=== PATIENT | male | born 1940 | race Caucasian/White ===

== ENCOUNTER 2016-11-10 10:06 | Inpatient (IN) | payer MEDICARE, OTHER ==
[2016-11-10] VITALS (516 sets, daily range): BP systolic 104–138; BP diastolic 54–84; PULSE 75–99; TEMP 98.7–102.8; O2SAT 88–100
[~2016-11-10] VITALS: Ht 170.2 cm; Wt 73.0 kg
[~2016-11-10 10:06] MED LIST: GLUCOPHAGE1000 MG PO; LANTUS100 U/ML SC; LOPRESSOR 550 MG/TAB PO; NORVASC 5MG5 MG/TAB PO; PRINIVIL10 MG PO; ZOCOR 20MG20 MG PO
[2016-11-10 10:51] LABS: MEAN CELL VOLUME 93 fl (80.0-100.0); MEAN CORPUSCULAR HGB CONC 34 g/dl (33.0-37.0); MEAN PLATELET VOLUME 8.8 fl (7.4-10.4); PLATELET COUNT 182 K/mm3 (130-400); RED BLOOD COUNT 2.87 M/mm3 (4.20-5.60); REDCELL DISTRIBUTION WIDTH-CV 14.2 % (11.5-14.5)
[2016-11-10 10:54] LABS: HEMATOCRIT 26.8 % (42.0-52.0); HEMOGLOBIN 9.1 g/dl (13.5-18.0); MEAN CORPUSCULAR HEMOGLOBIN 32 pg (27.0-31.0)
[2016-11-10 11:02] LABS: ADJUSTED CALCIUM 8.9 mg/dL (8.4-10.2); ALANINE AMINOTRANSFERASE 26 U/L (21-72); ALBUMIN 3.5 gm/dL (3.5-5.0); ALKALINE PHOSPHATASE 107 U/L (50-136); ANION GAP 12 mmol/L (7-16); BILIRUBIN,TOTAL 0.7 mg/dL (0.0-1.0); BLOOD UREA NITROGEN 47 mg/dL (9-20); CALCIUM 8.5 mg/dL (8.4-10.2); CHLORIDE 106 mmol/L (98-107); CREATININE, serum 2.25 mg/dL (0.66-1.25); GLUCOSE 256 mg/dL (74-106); LIPASE 19 U/L (23-300); MAGNESIUM 1.5 mg/dL (1.6-2.3); PHOSPHOROUS 2.5 mg/dL (2.5-4.5); POTASSIUM 4.6 mmol/L (3.4-5.0); SODIUM 132 mmol/L (137-145); TOTAL PROTEIN 6.7 gm/dL (6.4-8.2)
[2016-11-10 11:15] LABS: CARBON DIOXIDE 13 mmol/L (22-30)
[2016-11-10 11:42] LABS: ARTERIAL BLD GAS O2 SATURATION 95.1 % (92-100); ARTERIAL BLD GAS TCO2 CT 14.9; ARTERIAL BLOOD GAS BASE EXCESS -10.1 (-2-2); ARTERIAL BLOOD GAS HCO3 14.1 meq/L (22-26); ARTERIAL BLOOD GAS PHT 7.37 C (7.35-7.45); ARTERIAL BLOOD GAS PO2 82.5 mmHg (80-100); ARTERIAL BLOOD GAS PO2T 82.5 (80-100); ARTERIAL BLOOD GAS pH 7.37 (7.35-7.45); OXYHEMOGLOBIN 94.3 %
[2016-11-10 11:43] LABS: ATS? YES
[2016-11-10 11:52] LABS: BAND 21 % (0-10); BASOPHIL 2 % (0-2); DOHLE BODIES PRESENT; NEUTROPHILS 64 % (42.0-75.2); PLATELET ESTIMATE NORMAL (NORMAL); TOTAL CELLS COUNTED 100; TOXIC GRANULATION PRESENT
[2016-11-10 11:56] LABS: ADD PATHOLOGY DIFF REVIEW YES; ANISOCYTOSIS 1+; OVALOCYTES 1+; TEAR DROP CELLS 1+
[2016-11-10 12:22] LABS: C-REACTIVE PROTEIN 32.7 mg/dL (0.0-0.9)
[2016-11-10] MEDS ORDERED: CALCIUM CITRATE1 TA1 PO (13:07)
[2016-11-10] MEDS ORDERED: NOVOLOG FLEX100 U/ML SQ (13:08)
[2016-11-10] MEDS ORDERED: LASIX 20MG TABL20 MG PO (13:34)
[2016-11-10] MEDS ORDERED: NORCO 325 MG-51 TAB PO (13:35)
[2016-11-10] MEDS ORDERED: ZOFRAN ODT8 MG PO (13:36)
[2016-11-10] MEDS ORDERED: PAXIL 10MG10 MG PO (13:36)
[2016-11-10] MEDS ORDERED: MIRALAX PA17 GM/Dose PO (13:37)
[2016-11-10 14:08] LABS: PH 5 (5-8); SQUAMOUS EPITHELIAL None Seen /hpf; URINE APPEARANCE Clear; URINE BACTERIA None Seen /hpf; URINE BILIRUBIN Negative (NEGATIVE); URINE BLOOD 2+ (NEGATIVE); URINE COLOR Yellow; URINE GLUCOSE Negative (NEGATIVE); URINE KETONE Negative (NEGATIVE); URINE RBC 0-2 /hpf; URINE UROBILINOGEN Negative (NEGATIVE); URINE WBC 0-2 /hpf
[2016-11-10 18:34] LABS: VENOUS BLOOD GAS BE -9.9 (-4-4); VENOUS BLOOD GAS SAO2 67.2 % (60-80)
[2016-11-10 18:35] LABS: VENOUS BLOOD GAS SITE CENTRAL LINE
[2016-11-10 21:38] LABS: INR 1.3 (0.8-3.0)
[2016-11-11] VITALS (1247 sets, daily range): BP systolic 96–135; BP diastolic 49–68; PULSE 72–106; TEMP 98.3–103.1; O2SAT 85–100
[2016-11-11 05:06] LABS: BASO % 0.2 % (0.0-2.0); GRAN # 7.4 (1.4-6.5); GRAN % 80.2 % (42.2-75.2); HEMATOCRIT 24.2 % (42.0-52.0); HEMOGLOBIN 7.9 g/dl (13.5-18.0); LYMPH # 1.3 (1.2-3.4); LYMPH % 14.1 % (20.0-51.0); MEAN CELL VOLUME 96 fl (80.0-100.0); MEAN CORPUSCULAR HEMOGLOBIN 31 pg (27.0-31.0); MEAN CORPUSCULAR HGB CONC 33 g/dl (33.0-37.0); MEAN PLATELET VOLUME 8.9 fl (7.4-10.4); MONO # 0.5 (0.1-0.6); PLATELET COUNT 147 K/mm3 (130-400); RED BLOOD COUNT 2.51 M/mm3 (4.20-5.60); REDCELL DISTRIBUTION WIDTH-CV 14.5 % (11.5-14.5); WHITE BLOOD COUNT 9.2 K/mm3 (4.8-10.8)
[2016-11-11 05:09] LABS: VENOUS BLOOD GAS BE -8.9 (-4-4); VENOUS BLOOD GAS SAO2 70.8 % (60-80)
[2016-11-11 05:10] LABS: ARTERIAL BLD GAS O2 SATURATION 95.3 % (92-100); ARTERIAL BLD GAS TCO2 CT 14.4; ARTERIAL BLOOD GAS BASE EXCESS -10.2 (-2-2); ARTERIAL BLOOD GAS HCO3 13.7 meq/L (22-26); ARTERIAL BLOOD GAS PO2 80.2 mmHg (80-100); ARTERIAL BLOOD GAS PO2T 80.2 (80-100); OXYHEMOGLOBIN 93.6 %
[2016-11-11 05:12] LABS: INR 1.2 (0.8-3.0); PROTHROMBIN TIME 13.7 SECONDS (9.7-12.8)
[2016-11-11 05:20] LABS: ADJUSTED CALCIUM 8.4 mg/dL (8.4-10.2); ALBUMIN 2.5 gm/dL (3.5-5.0); BILIRUBIN,TOTAL 0.4 mg/dL (0.0-1.0); CALCIUM 7.2 mg/dL (8.4-10.2); CREATININE, serum 1.56 mg/dL (0.66-1.25); MAGNESIUM 2.4 mg/dL (1.6-2.3); POTASSIUM 4.2 mmol/L (3.4-5.0); TOTAL PROTEIN 5.3 gm/dL (6.4-8.2)
[2016-11-11 05:31] LABS: TROPONIN-I 0.139 ng/mL (0.000-0.034)
[2016-11-11 09:28] LABS: VENOUS BLOOD GAS BE -12.6 (-4-4); VENOUS BLOOD GAS SAO2 67.7 % (60-80)
[2016-11-11 09:29] LABS: VENOUS BLOOD GAS SITE CENTRAL LINE
[2016-11-11 11:09] LABS: HEMATOCRIT 23.5 % (42.0-52.0); HEMOGLOBIN 7.7 g/dl (13.5-18.0)
[2016-11-11 11:37] LABS: CALCIUM 7.1 mg/dL (8.4-10.2); CREATININE, serum 1.57 mg/dL (0.66-1.25)
[2016-11-11 13:15] LABS: VENOUS BLOOD GAS BE -9.9 (-4-4)
[2016-11-11 13:16] LABS: VENOUS BLOOD GAS SITE CENTRAL LINE
[2016-11-11 17:35] LABS: VENOUS BLOOD GAS BE -12.9 (-4-4); VENOUS BLOOD GAS SAO2 61.9 % (60-80)
[2016-11-11 17:36] LABS: VENOUS BLOOD GAS SITE CENTRAL LINE
[2016-11-12] VITALS (673 sets, daily range): BP systolic 110–162; BP diastolic 60–92; PULSE 74–97; TEMP 99.9–102; O2SAT 73–100
[2016-11-12 05:47] LABS: VENOUS BLOOD GAS SAO2 70.2 % (60-80)
[2016-11-12 05:47] LABS: ARTERIAL BLD GAS O2 SATURATION 97.1 % (92-100); ARTERIAL BLD GAS TCO2 CT 14.3; ARTERIAL BLOOD GAS BASE EXCESS -9.3 (-2-2); ARTERIAL BLOOD GAS HCO3 13.6 meq/L (22-26); ARTERIAL BLOOD GAS PHT 7.42 C (7.35-7.45); ARTERIAL BLOOD GAS PO2 99.9 mmHg (80-100); ARTERIAL BLOOD GAS PO2T 99.9 (80-100); ARTERIAL BLOOD GAS pH 7.42 (7.35-7.45); OXYHEMOGLOBIN 96.2 %
[2016-11-12 05:55] LABS: VENOUS BLOOD GAS SITE CENTRAL LINE
[2016-11-12 05:55] LABS: ALLEN TEST YES; ALLENS TEST RESULT PASS; ATS? YES
[2016-11-12 06:17] LABS: INR 1.2 (0.8-3.0); PROTHROMBIN TIME 13.6 SECONDS (9.7-12.8)
[2016-11-12 06:22] LABS: CALCIUM 7.2 mg/dL (8.4-10.2); CREATININE, serum 1.28 mg/dL (0.66-1.25)
[2016-11-12 07:38] LABS: ADD PATHOLOGY DIFF REVIEW NO; HEMATOCRIT 25.6 % (42.0-52.0); HEMOGLOBIN 8.4 g/dl (13.5-18.0); MEAN CELL VOLUME 94 fl (80.0-100.0); MEAN CORPUSCULAR HEMOGLOBIN 31 pg (27.0-31.0); MEAN CORPUSCULAR HGB CONC 33 g/dl (33.0-37.0); MEAN PLATELET VOLUME 9.7 fl (7.4-10.4); PLATELET COUNT 143 K/mm3 (130-400); RED BLOOD COUNT 2.72 M/mm3 (4.20-5.60); REDCELL DISTRIBUTION WIDTH-CV 16.7 % (11.5-14.5); WHITE BLOOD COUNT 7.9 K/mm3 (4.8-10.8)
[2016-11-12 07:58] LABS: BAND 50 % (0-10); NEUTROPHILS 38 % (42.0-75.2); TOTAL CELLS COUNTED 100
[2016-11-12 08:00] LABS: BURR CELLS 2+; PLATELET ESTIMATE DECREASED (NORMAL); TARGET CELLS 1+
[2016-11-12 08:01] LABS: ANISOCYTOSIS 1+
[2016-11-12 09:45] LABS: VENOUS BLOOD GAS BE -9.8 (-4-4)
[2016-11-12 09:46] LABS: VENOUS BLOOD GAS SITE CENTRAL LINE
[2016-11-12 13:20] LABS: VENOUS BLOOD GAS BE -9.5 (-4-4); VENOUS BLOOD GAS SAO2 64.9 % (60-80)
[2016-11-12 13:21] LABS: VENOUS BLOOD GAS SITE CENTRAL LINE
[2016-11-13] VITALS (740 sets, daily range): BP systolic 108–128; BP diastolic 58–99; PULSE 64–89; TEMP 97–101.6; O2SAT 84–100
[2016-11-13 06:13] LABS: INR 1.2 (0.8-3.0); PROTHROMBIN TIME 13.6 SECONDS (9.7-12.8)
[2016-11-13 06:20] LABS: CALCIUM 7.5 mg/dL (8.4-10.2); CREATININE, serum 1.3 mg/dL (0.66-1.25); POTASSIUM 3.9 mmol/L (3.4-5.0)
[2016-11-13 10:03] LABS: MEAN CELL VOLUME 94 fl (80.0-100.0); MEAN CORPUSCULAR HGB CONC 33 g/dl (33.0-37.0); MEAN PLATELET VOLUME 10.8 fl (7.4-10.4); PLATELET COUNT 137 K/mm3 (130-400); RED BLOOD COUNT 2.77 M/mm3 (4.20-5.60); REDCELL DISTRIBUTION WIDTH-CV 17.3 % (11.5-14.5); WHITE BLOOD COUNT 5.5 K/mm3 (4.8-10.8)
[2016-11-13 10:06] LABS: HEMATOCRIT 25.9 % (42.0-52.0); HEMOGLOBIN 8.6 g/dl (13.5-18.0); MEAN CORPUSCULAR HEMOGLOBIN 31 pg (27.0-31.0)
[2016-11-14] VITALS (498 sets, daily range): BP systolic 117–140; BP diastolic 57–84; PULSE 64–84; TEMP 36–37.7; O2SAT 87–100
[2016-11-14 05:33] LABS: MEAN CELL VOLUME 92 fl (80.0-100.0); MEAN CORPUSCULAR HGB CONC 33 g/dl (33.0-37.0); MEAN PLATELET VOLUME 9.2 fl (7.4-10.4); PLATELET COUNT 150 K/mm3 (130-400); RED BLOOD COUNT 2.95 M/mm3 (4.20-5.60); WHITE BLOOD COUNT 7.6 K/mm3 (4.8-10.8)
[2016-11-14 05:35] LABS: MEAN CORPUSCULAR HEMOGLOBIN 31 pg (27.0-31.0)
[2016-11-14 06:24] LABS: ADJUSTED CALCIUM 9.1 mg/dL (8.4-10.2); ALBUMIN 2.4 gm/dL (3.5-5.0); BILIRUBIN,TOTAL 0.4 mg/dL (0.0-1.0); CALCIUM 7.8 mg/dL (8.4-10.2); CREATININE, serum 1.19 mg/dL (0.66-1.25); POTASSIUM 3.9 mmol/L (3.4-5.0); TOTAL PROTEIN 5.3 gm/dL (6.4-8.2)
[2016-11-15] VITALS (561 sets, daily range): BP systolic 132–140; BP diastolic 64–80; PULSE 55–71; TEMP 97–98.3; O2SAT 92–100
[2016-11-16 03:22] VITALS: BP 136/67; PULSE 67; TEMP 100.6
[2016-11-16 07:31] VITALS: BP 141/57; PULSE 62; TEMP 98.8
[2016-11-16 09:00] LABS: MEAN CELL VOLUME 93 fl (80.0-100.0); MEAN CORPUSCULAR HGB CONC 33 g/dl (33.0-37.0); MEAN PLATELET VOLUME 9.3 fl (7.4-10.4); PLATELET COUNT 232 K/mm3 (130-400); RED BLOOD COUNT 2.91 M/mm3 (4.20-5.60); REDCELL DISTRIBUTION WIDTH-CV 16.7 % (11.5-14.5); WHITE BLOOD COUNT 7.1 K/mm3 (4.8-10.8)
[2016-11-16 09:08] LABS: HEMOGLOBIN 8.8 g/dl (13.5-18.0); MEAN CORPUSCULAR HEMOGLOBIN 30 pg (27.0-31.0)
[2016-11-16 09:09] LABS: ADD PATHOLOGY DIFF REVIEW NO
[2016-11-16 09:22] LABS: CALCIUM 7.8 mg/dL (8.4-10.2); CREATININE, serum 1.07 mg/dL (0.66-1.25); POTASSIUM 3.5 mmol/L (3.4-5.0)
[2016-11-16 09:35] LABS: BAND 11 % (0-10); EOSINOPHIL 3 % (0-4); HYPOCHROMIA 2+; TARGET CELLS 1+; TOTAL CELLS COUNTED 100
[2016-11-16 09:36] LABS: NEUTROPHILS 57 % (42.0-75.2); PLATELET ESTIMATE NORMAL (NORMAL)
[2016-11-16 11:23] VITALS: BP 127/57; PULSE 60; TEMP 97.8
[2016-11-16 18:21] VITALS: BP 119/55; PULSE 59; TEMP 98.7
[2016-11-17 05:00] VITALS: BP 142/66; PULSE 55; TEMP 98
[2016-11-17 07:37] VITALS: BP 131/74; PULSE 76; TEMP 98.1
[2016-11-17 07:48] VITALS: BP 133/64; PULSE 65; TEMP 98.3
[2016-11-17 09:14] LABS: MEAN CELL VOLUME 92 fl (80.0-100.0); MEAN CORPUSCULAR HGB CONC 33 g/dl (33.0-37.0); MEAN PLATELET VOLUME 9.5 fl (7.4-10.4); PLATELET COUNT 252 K/mm3 (130-400); RED BLOOD COUNT 2.82 M/mm3 (4.20-5.60); REDCELL DISTRIBUTION WIDTH-CV 16.9 % (11.5-14.5); WHITE BLOOD COUNT 6.6 K/mm3 (4.8-10.8)
[2016-11-17 09:15] LABS: HEMATOCRIT 25.9 % (42.0-52.0); HEMOGLOBIN 8.5 g/dl (13.5-18.0); MEAN CORPUSCULAR HEMOGLOBIN 30 pg (27.0-31.0)
[2016-11-17 09:16] LABS: ADD PATHOLOGY DIFF REVIEW NO
[2016-11-17 10:13] LABS: BAND 7 % (0-10); BASOPHIL 1 % (0-2); HYPOCHROMIA 1+; NEUTROPHILS 73 % (42.0-75.2); TOTAL CELLS COUNTED 100
[2016-11-17 10:14] LABS: ANISOCYTOSIS 1+; PLATELET ESTIMATE NORMAL (NORMAL)
[2016-11-17 11:23] LABS: ADJUSTED CALCIUM 9.2 mg/dL (8.4-10.2); ALBUMIN 2.1 gm/dL (3.5-5.0); BILIRUBIN,TOTAL 0.3 mg/dL (0.0-1.0); CALCIUM 7.7 mg/dL (8.4-10.2); CREATININE, serum 1.07 mg/dL (0.66-1.25); POTASSIUM 3.3 mmol/L (3.4-5.0); TOTAL PROTEIN 4.9 gm/dL (6.4-8.2)
[2016-11-17 13:39] VITALS: BP 137/59; PULSE 65; TEMP 98.3
[2016-11-17 15:52] VITALS: BP 114/58; PULSE 61; TEMP 97.8
[2016-11-17 19:35] VITALS: BP 140/55; PULSE 64; TEMP 98.4
[2016-11-18 00:19] VITALS: BP 122/52; PULSE 60; TEMP 97.9
[2016-11-18 04:14] VITALS: BP 137/64; PULSE 61; TEMP 99
[2016-11-18 07:34] LABS: ADJUSTED CALCIUM 9.3 mg/dL (8.4-10.2); ALBUMIN 2.3 gm/dL (3.5-5.0); BILIRUBIN,TOTAL 0.3 mg/dL (0.0-1.0); CALCIUM 7.9 mg/dL (8.4-10.2); CREATININE, serum 1.06 mg/dL (0.66-1.25); MAGNESIUM 1.6 mg/dL (1.6-2.3); POTASSIUM 3.4 mmol/L (3.4-5.0); TOTAL PROTEIN 5.2 gm/dL (6.4-8.2)
[2016-11-18 08:11] VITALS: BP 138/57; PULSE 66; TEMP 98.1
[2016-11-18 11:55] VITALS: BP 125/62; PULSE 57; TEMP 98.9
[2016-11-18] MEDS ORDERED: FLAGYL500 MG PO (12:02)
[2016-11-18] MEDS ORDERED: IPRATROPIUM BROM3 M1 IH (12:03)
[2016-11-18] MEDS ORDERED: XARELTO15 MG PO (12:04)
[2016-11-18] MEDS ORDERED: TOPROL XL100 MG PO (12:07)
[2016-11-18] MEDS ORDERED: ASPIRIN E.C. 8181 MG PO (12:19)
[2016-11-18] MEDS ORDERED: PROTONIX 40MG T40 MG PO (12:20)
[2016-11-18] MEDS ORDERED: MAG-OX 400400 MG/TAB PO (12:20)
[2016-11-18] MEDS ORDERED: LANTUS100 U/ML SC (12:23)
[2016-11-18] MEDS ORDERED: PRINIVIL10 MG PO (12:26)
== END 2016-11-18 15:16 | DRG 871 ==
LOC: COL.ER 10:06 → ICU 12:33 → MEDICAL 11-15 14:05
PROVIDERS: Emergency Medicine; Family Medicine; Internal Medicine; Internal Medicine Interventional Cardiology; Nurse Practitioner; Nurse Practitioner Family
PROC: 02H633Z Insertion of Infusion Device into Right Atrium, Percutaneous Approach (ICD-10-PCS; principal; 2016-11-10)
DX: A02.1 Salmonella sepsis (principal); J18.9 Pneumonia, unspecified organism; I21.4 Non-ST elevation (NSTEMI) myocardial infarction; I26.99 Other pulmonary embolism without acute cor pulmonale; E87.2 Acidosis; C18.2 Malignant neoplasm of ascending colon; N17.9 Acute kidney failure, unspecified; E87.3 Alkalosis; I12.9 Hypertensive chronic kidney disease with stage 1 through stage 4 chronic kidney disease, or unspecified chronic kidney disease; E11.22 Type 2 diabetes mellitus with diabetic chronic kidney disease; N18.3 Chronic kidney disease, stage 3 (moderate); Z79.4 Long term (current) use of insulin; R65.20 Severe sepsis without septic shock; I25.10 Atherosclerotic heart disease of native coronary artery without angina pectoris; E83.42 Hypomagnesemia; D64.9 Anemia, unspecified
CPT/HCPCS: 99223-AI; 99233-AI; 99239; A4315; A9502; C1751; C9113; J0696; J1450; J1644; J1650; J1815; J1956; J2185; J2785; J3370; J3475; J7030; J7040; J7050; P9016; Q9967

== ENCOUNTER → 2016-12-11 | Outpatient (REF) ==
[~2016-12-11] MED LIST changes: +ASPIRIN E.C. 8181 MG PO; +CALCIUM CITRATE1 TA1 PO; +FLAGYL500 MG PO; +IPRATROPIUM BROM3 M1 IH; +LASIX 20MG TABL20 MG PO; +MAG-OX 400400 MG/TAB PO; +MIRALAX PA17 GM/Dose PO; +NORCO 325 MG-51 TAB PO; +NOVOLOG FLEX100 U/ML SQ; +PAXIL 10MG10 MG PO; +PROTONIX 40MG T40 MG PO; +TOPROL XL100 MG PO; +XARELTO15 MG PO; +ZOFRAN ODT8 MG PO
== END ==
LOC: ZAIV 12-07 06:00
DX: Z02.89 Encounter for other administrative examinations (principal)

== ENCOUNTER 2017-05-01 08:52 | Day surgery (SDC) | payer MEDICARE, OTHER ==
[2017-05-01] VITALS (9 sets, daily range): BP systolic 114–179; BP diastolic 61–84; PULSE 45–56; TEMP 97.8–98.2
[~2017-05-01] VITALS: Ht 170.2 cm; Wt 77.6 kg
[2017-05-01 09:52] LABS: MEAN CELL VOLUME 96 fl (80.0-100.0); MEAN CORPUSCULAR HGB CONC 33 g/dl (33.0-37.0); MEAN PLATELET VOLUME 8.3 fl (7.4-10.4); PLATELET COUNT 201 K/mm3 (130-400); RED BLOOD COUNT 3.59 M/mm3 (4.20-5.60); REDCELL DISTRIBUTION WIDTH-CV 13.6 % (11.5-14.5)
[2017-05-01 09:53] LABS: HEMATOCRIT 34.6 % (42.0-52.0); HEMOGLOBIN 11.4 g/dl (13.5-18.0); MEAN CORPUSCULAR HEMOGLOBIN 32 pg (27.0-31.0)
[2017-05-01 09:56] LABS: PROTHROMBIN TIME 11.7 SECONDS (9.7-12.8)
[2017-05-01 10:01] LABS: CALCIUM 9.2 mg/dL (8.4-10.2); CREATININE, serum 1.65 mg/dL (0.66-1.25); POTASSIUM 5.4 mmol/L (3.4-5.0)
[2017-05-01] MEDS ORDERED: ZEBETA10 MG PO (11:27)
== END 2017-05-01 14:02 | disposition home or self-care (01) ==
LOC: COL.CAR 08:52
PROVIDERS: Internal Medicine Cardiovascular Disease
DX: R94.39 Abnormal result of other cardiovascular function study (principal); I25.2 Old myocardial infarction; E11.22 Type 2 diabetes mellitus with diabetic chronic kidney disease; I12.9 Hypertensive chronic kidney disease with stage 1 through stage 4 chronic kidney disease, or unspecified chronic kidney disease; N18.9 Chronic kidney disease, unspecified; Z86.711 Personal history of pulmonary embolism; Z85.038 Personal history of other malignant neoplasm of large intestine; Z90.49 Acquired absence of other specified parts of digestive tract; Z79.82 Long term (current) use of aspirin; Z79.4 Long term (current) use of insulin; Z80.9 Family history of malignant neoplasm, unspecified; E78.5 Hyperlipidemia, unspecified
CPT/HCPCS: C1769; C1894; J1644; J2250; J3010; Q9967

== ENCOUNTER → 2017-09-07 | Outpatient (CLI) | payer MEDICARE, OTHER ==
[~2017-09-07] MED LIST changes: +ZEBETA10 MG PO
== END ==
LOC: COL.RAD 11:25
DX: J84.10 Pulmonary fibrosis, unspecified (principal); M46.84 Other specified inflammatory spondylopathies, thoracic region; M43.8X4 Other specified deforming dorsopathies, thoracic region; Z90.49 Acquired absence of other specified parts of digestive tract; Z86.711 Personal history of pulmonary embolism

== ENCOUNTER 2018-10-28 07:23 | Emergency (ER) | payer MEDICARE, OTHER ==
[~2018-10-28] VITALS: Ht 170.2 cm; Wt 81.8 kg
[2018-10-28 07:33] VITALS: TEMP 97.9
[2018-10-28] MEDS ORDERED: CLARITIN 1010 MG/TAB PO (08:17)
[2018-10-28] MEDS ORDERED: HUMALOG PEN100 U/ML SQ (08:18)
[2018-10-28] MEDS ORDERED: LANTUS SOLOS100 U/ML SQ (08:20)
[2018-10-28] MEDS ORDERED: PRINIVIL20 MG PO (08:22)
[2018-10-28 09:22] LABS: BASO % 0.3 % (0.0-2.0); EOS # 0.1 (0.0-0.7); EOS % 0.6 % (0-4.0); GRAN # 6.9 (1.4-6.5); GRAN % 73.6 % (42.2-75.2); HEMATOCRIT 36.6 % (42.0-52.0); HEMOGLOBIN 12.2 g/dl (13.5-18.0); LYMPH # 1.7 (1.2-3.4); LYMPH % 18.4 % (20.0-51.0); MEAN CELL VOLUME 95 fl (80.0-100.0); MEAN CORPUSCULAR HEMOGLOBIN 32 pg (27.0-31.0); MEAN CORPUSCULAR HGB CONC 33 g/dl (33.0-37.0); MEAN PLATELET VOLUME 8.1 fl (7.4-10.4); MONO # 0.6 (0.1-0.6); MONO % 6.5 % (1.7-9.3); PLATELET COUNT 263 K/mm3 (130-400); RED BLOOD COUNT 3.86 M/mm3 (4.20-5.60); REDCELL DISTRIBUTION WIDTH-CV 13.8 % (11.5-14.5)
[2018-10-28 09:31] LABS: ALANINE AMINOTRANSFERASE < 6 U/L (21-72); ALBUMIN 4.2 gm/dL (3.5-5.0); ALKALINE PHOSPHATASE 126 U/L (50-136); ANION GAP 10 mmol/L (7-16); AST,SGOT 21 U/L (15-37); BILIRUBIN,TOTAL 0.4 mg/dL (0.0-1.0); BLOOD UREA NITROGEN 28 mg/dL (9-20); CALCIUM 9.3 mg/dL (8.4-10.2); CARBON DIOXIDE 22 mmol/L (22-30); CHLORIDE 106 mmol/L (98-107); CREATININE, serum 1.52 (0.66-1.25); GLUCOSE 263 mg/dL (74-106); SODIUM 138 mmol/L (137-145); TOTAL PROTEIN 7.7 gm/dL (6.4-8.2)
[2018-10-28] MEDS ORDERED: LIDODERM 5% PATC1 EA TP (09:33)
[2018-10-28] MEDS ORDERED: APRESOLINE 25MG25 MG PO (10:20)
[2018-10-28] MEDS ORDERED: NORCO 325 MG-51 TAB PO (10:27)
[2018-10-28 11:55] VITALS: BP 136/65; PULSE 56
== END 2018-10-28 11:35 | disposition home or self-care (01) ==
LOC: COL.ER 07:23
PROVIDERS: Emergency Medicine
DX: M54.2 Cervicalgia (principal); E87.5 Hyperkalemia; I10 Essential (primary) hypertension; I25.10 Atherosclerotic heart disease of native coronary artery without angina pectoris; I12.9 Hypertensive chronic kidney disease with stage 1 through stage 4 chronic kidney disease, or unspecified chronic kidney disease; E11.22 Type 2 diabetes mellitus with diabetic chronic kidney disease; N18.9 Chronic kidney disease, unspecified; Z79.82 Long term (current) use of aspirin; Z90.49 Acquired absence of other specified parts of digestive tract; Z90.89 Acquired absence of other organs; Z79.4 Long term (current) use of insulin
CPT/HCPCS: J0610; J1815; J7512

== ENCOUNTER 2019-04-01 12:46 | Emergency (ER) | payer MEDICARE, OTHER ==
[~2019-04-01] VITALS: Ht 170.2 cm; Wt 81.8 kg
[~2019-04-01 12:46] MED LIST changes: +APRESOLINE 25MG25 MG PO; +CLARITIN 1010 MG/TAB PO; +HUMALOG PEN100 U/ML SQ; +LANTUS SOLOS100 U/ML SQ; +LIDODERM 5% PATC1 EA TP; +PRINIVIL20 MG PO
[2019-04-01 12:58] VITALS: TEMP 96.7
[2019-04-01 13:28] LABS: BASO % 0.5 % (0.0-2.0); EOS # 0.1 (0.0-0.7); GRAN # 3.5 (1.4-6.5); GRAN % 55.8 % (42.2-75.2); HEMATOCRIT 38.1 % (42.0-52.0); HEMOGLOBIN 12.8 g/dl (13.5-18.0); LYMPH # 2.2 (1.2-3.4); LYMPH % 34.3 % (20.0-51.0); MEAN CELL VOLUME 94 fl (80.0-100.0); MEAN CORPUSCULAR HEMOGLOBIN 32 pg (27.0-31.0); MEAN CORPUSCULAR HGB CONC 34 g/dl (33.0-37.0); MEAN PLATELET VOLUME 8.4 fl (7.4-10.4); MONO # 0.5 (0.1-0.6); MONO % 7.8 % (1.7-9.3); PLATELET COUNT 236 K/mm3 (130-400); RED BLOOD COUNT 4.05 M/mm3 (4.20-5.60); REDCELL DISTRIBUTION WIDTH-CV 13.1 % (11.5-14.5)
[2019-04-01 13:38] LABS: ALANINE AMINOTRANSFERASE 26 U/L (21-72); ALBUMIN 4.3 gm/dL (3.5-5.0); ALKALINE PHOSPHATASE 131 U/L (50-136); ANION GAP 12 mmol/L (7-16); AST,SGOT 24 U/L (15-37); BILIRUBIN,TOTAL 0.6 mg/dL (0.0-1.0); BLOOD UREA NITROGEN 34 mg/dL (9-20); CALCIUM 9.3 mg/dL (8.4-10.2); CARBON DIOXIDE 23 mmol/L (22-30); CHLORIDE 105 mmol/L (98-107); CREATININE, serum 2.02 (0.66-1.25); GLUCOSE 231 mg/dL (74-106); LIPASE 28 U/L (23-300); POTASSIUM 4.6 mmol/L (3.4-5.0); SODIUM 140 mmol/L (137-145); TOTAL PROTEIN 7.9 gm/dL (6.4-8.2)
[2019-04-01 13:51] LABS: INR 0.9 (0.8-3.0); PROTHROMBIN TIME 10.7 SECONDS (9.7-12.8)
[2019-04-01 14:00] LABS: TROPONIN-I < 0.012 ng/mL (0.000-0.035)
[2019-04-01 17:43] VITALS: BP 141/84; PULSE 65
== END 2019-04-01 17:43 | disposition home or self-care (01) ==
LOC: COL.ER 12:46
PROVIDERS: Emergency Medicine
DX: R07.89 Other chest pain (principal); I25.10 Atherosclerotic heart disease of native coronary artery without angina pectoris; I10 Essential (primary) hypertension; N18.9 Chronic kidney disease, unspecified; Z95.9 Presence of cardiac and vascular implant and graft, unspecified; Z90.89 Acquired absence of other organs; Z79.82 Long term (current) use of aspirin; Z79.4 Long term (current) use of insulin
CPT/HCPCS: J1885; J7030; J7040; Q9967

== ENCOUNTER → 2019-09-12 | Outpatient (CLI) | payer MEDICARE, OTHER | LOC: COL.RAD 13:30 | DX: R06.02 Shortness of breath (principal) | CPT/HCPCS: Q9967 ==